=== PATIENT | female | born 1955 | race Caucasian/White ===

== ENCOUNTER 2016-09-03 17:47 | Emergency (ER) | payer SELFPAY ==
[2016-09-03] MEDS ORDERED: Sodium Chloride 0.9% 1000 ML 1,000 ML IV SCH (18:00)
[2016-09-03] MEDS ORDERED: VERSED 5 MG/5 ML ONE (18:04)
[2016-09-03] MEDS ORDERED: Sodium Chloride 0.9% 1000 ML 1,000 ML ONE (18:04)
[2016-09-03 18:05] LABS: A-aADO2 551; ARTERIAL BLD GAS O2 SATURATION 81.2 % (95-100); ARTERIAL BLD GAS TIDAL VOLUME 550 cc; ARTERIAL BLOOD GAS BASE EXCESS -11.6 (-2.0-2.0); ARTERIAL BLOOD GAS FIO2 100 %; ARTERIAL BLOOD GAS PO2 56 mmHg (75-100); ARTERIAL BLOOD GAS pH 7.01 (7.35-7.45)
[2016-09-03 18:06] LABS: ALLEN TEST OK? YES
--- NOTE | 2016-09-03 18:06 | ERPHSYRPT ---
- History of Present Illness Time Seen by Provider: 09/03/16 17:57 Source: EMS Exam Limitations: clinical condition Physician History: This is a 61-year-old white male brought by medics patient apparently suddenly had a seizure collapsed at home. Medics were summoned they found the patient to be on the floor without pulsatile he began CPR and pulse returned patient was intubated by medics he received succinyl choline prior to arrival. Patient arrives intubated obtunded he does have a pulse and blood pressure. Timing/Duration: today (just prior to arrival) Severity: severe - Review of Systems All Other Systems: Unable due to condition (unable to obtain review of systems from this patient) - Nursing Vital Signs Nursing Vital Signs: Initial Vital Signs Temperature 97.7 F Temperature Source Rectal Pulse Rate [Left Radial] 109 Pulse Rate 117 Respiratory Rate 19 Blood Pressure [Left Arm] 108/72 Pain Intensity 0 - Physical Exam General Appearance: other (well-developed white male intubated obtunded breath sounds bilaterally with bag ventilation) Eye Exam: other (eyes pupils nonreactive (patient had received succinylcholine)) Ears, Nose, Throat Exam: TMs normal, moist mucous membranes, No normal ENT inspection (patient is intubated ET tube is in place) Neck Exam: normal inspection, non-tender, supple, full range of motion Respiratory Exam: lungs clear, other (bilateral breath sounds with ventilation through ET tube), No respiratory distress Cardiovascular Exam: regular rate/rhythm, normal heart sounds, normal peripheral pulses Gastrointestinal/Abdomen Exam: soft (O guides given some Versed), normal bowel sounds, No tenderness, No mass Back Exam: normal inspection, normal range of motion, No CVA tenderness, No vertebral tenderness Extremity Exam: normal inspection, normal range of motion, pelvis stable, No penetrations Neurologic Exam: nml station & gait, No alert (patient is obtunded he does however start fighting on his endotracheal tube he has no response to pain at this time) Skin Exam: normal color, warm, dry, No rash - Course Nursing assessment & vital signs reviewed: Yes EKG Interpreted by Me: RATE (111 bpm), Other (EKG, sinus tachycardia, 111 bpm,S AXISI/QIII pattern, elevation in lead 3,) - Radiology Exams Chest X-ray Interpretation: Interpreted by me, Other (chest x-ray increased left perihilar and right lower lobe lung markings endotracheal tube in place no pneumothorax) Ordered Tests: Active Orders 24 hr Category Date Time Status EKG-ER Only STAT Care 09/03/16 17:57 Active Wong [Catheter-Franconia Wong] STAT Care 09/03/16 19:01 Active IV Insertion STAT Care 09/03/16 17:57 Active IV Insertion-2nd Peripheral STAT Care 09/03/16 18:48 Active Pulse Oximetry (ED) STAT Care 09/03/16 17:57 Active CERVICAL SPINE WO CONTRAST [CT] Stat Exams 09/03/16 17:59 Ordered CHEST 1 VIEW (PORTABLE) Stat Exams 09/03/16 17:58 Taken HEAD WITHOUT CONTRAST [CT] Stat Exams 09/03/16 17:59 Ordered ABG [ARTERIAL BLOOD GASES] Stat Lab 09/03/16 17:54 Completed ABG [ARTERIAL BLOOD GASES] Urgent Lab 09/03/16 18:07 Completed ACETAMINOPHEN Stat Lab 09/03/16 18:12 Completed AMYLASE Stat Lab 09/03/16 18:12 Completed BLOOD CULTURE Stat Lab 09/03/16 18:25 Received CBC W DIFF Stat Lab 09/03/16 18:12 Completed CMP Stat Lab 09/03/16 18:12 Completed CULTURE,URINE Stat Lab 09/03/16 18:10 Received D-DIMER QUANTITATION Stat Lab 09/03/16 18:12 Completed Ethyl Alcohol,Urine Stat Lab 09/03/16 18:10 Completed Lactic Acid Urgent Lab 09/03/16 17:57 Completed Lactic Acid Urgent Lab 09/03/16 18:10 Ordered Manual Differential NC Stat Lab 09/03/16 18:12 Completed NT PRO BNP Stat Lab 09/03/16 18:12 Completed PROTIME WITH INR Stat Lab 09/03/16 18:12 Completed PTT Stat Lab 09/03/16 18:12 Completed SALICYLATE Stat Lab 09/03/16 18:12 Completed TROPONIN Q3H Lab 09/03/16 18:12 Completed TROPONIN Q3H Lab 09/03/16 21:00 Ordered TROPONIN Q3H Lab 09/04/16 00:00 Ordered TROPONIN Q3H Lab 09/04/16 03:00 Ordered TROPONIN Q3H Lab 09/04/16 06:00 Ordered UA W/ MICROSCOPIC Stat Lab 09/03/16 18:10 Completed Urine Triage Profile Stat Lab 09/03/16 18:10 Completed Medication Summary Generic Name Dose Route Start Last Admin Trade Name Freq PRN Reason Stop Dose Admin Sodium Chloride 1,000 mls @ 100 mls/hr 09/03/16 18:00 09/03/16 18:50 Sodium Chloride 0.9% 1000 Ml IV 10/03/16 17:59 100 mls/hr .Q10H ANA MARIA Administration Discontinued Medications Generic Name Dose Route Start Last Admin Trade Name Enzo PRN Reason Stop Dose Admin Fentanyl Citrate Confirm 09/03/16 18:38 Sublimaze 100 Mcg/2 Ml Administered 09/03/16 18:39 Dose 100 mcg .ROUTE .STK-MED ONE Sodium Chloride Confirm 09/03/16 18:04 Sodium Chloride 0.9% 1000 Ml Administered 09/03/16 18:05 Dose 1,000 mls @ ud .ROUTE .STK-MED ONE Sodium Chloride Confirm 09/03/16 18:12 Sodium Chloride 0.9% 250 Ml Administered 09/03/16 18:13 Dose 250 mls @ ud IV .STK-MED ONE Sodium Chloride Confirm 09/03/16 18:30 Sodium Chloride 0.9% 1000 Ml Administered 09/03/16 18:31 Dose 2,000 mls @ ud .ROUTE .STK-MED ONE Midazolam HCl Confirm 09/03/16 18:04 Versed 5 Mg/5 Ml Administered 09/03/16 18:05 Dose 5 mg .ROUTE .STK-MED ONE Midazolam HCl Confirm 09/03/16 18:12 Versed 50 Mg/ 10 Ml Mdv Administered 09/03/16 18:13 Dose 50 mg .ROUTE .STK-MED ONE Lab/Rad Data: Laboratory Result Diagrams 09/03/16 18:12 09/03/16 18:12 Laboratory Results 09/03/16 09/03/16 09/03/16 Range/Units 18:12 18:12 18:12 WBC (4.0-10.5) K/mm3 RBC (4.1-5.4) M/mm3 Hgb (12.0-16.0) gm/dl Hct (35-47) % MCV (78-100) fl MCH (26-32) pg MCHC (32-36) g/dl RDW (11.5-14.0) % Plt Count (150-450) K/mm3 MPV (6-9.5) fl INR 1.07 (0.8-3.0) PTT 28.7 (25.3-37.0) SECONDS D-Dimer 5.279 H* (0.00-0.49) mg/L Puncture Site pCO2 (35-45) mmHg pO2 (75-100) mmHg Base Excess (-2.0-2.0) O2 Saturation (94-100) g/dF ABG pH (7.35-7.45) ABG HCO3 (22-28) ABG O2 Sat (Measured) (95-100) % David Test A-a Gradient a/A Ratio Hemoglobin Carboxyhemoglobin (0.0-6.9) % THgb Methemoglobin (1.4-1.5) % Potassium 4.1 (3.5-5.1) Temperature C POC O2 Flow Rate % Vent Mode Vent Rate /MIN Tidal Volume cc PEEP cmH2O Sodium 144 (136-145) mEq/L Chloride 105 (98-107) mEq/L Carbon Dioxide 22.6 (21-32) mEq/L Anion Gap 20.8 H (5-15) MEQ/L BUN 11 (9-20) mg/dL Creatinine 1.51 H (0.55-1.30) mg/dl Estimated GFR 37 ML/MIN Glucose 300 H (70-110) MG/DL Lactic Acid (0.4-2.0) Calcium 8.4 L (8.5-10.1) mg/dL Total Bilirubin 0.3 (0.2-1.0) mg/dL AST 26 (15-37) U/L ALT 29 (12-78) U/L Alkaline Phosphatase 101 (46-116) U/L Troponin I < 0.017 (0.000-0.056) ng/ml NT-Pro-B Natriuret Pep < 5.0 (0-125) pg/ml Serum Total Protein 7.0 (6.4-8.2) gm/dL Albumin 3.3 L (3.4-5.0) g/dL Amylase 44 (25-115) U/L Ur Collection Type Urine Color (YELLOW) Urine Appearance (CLEAR) Urine pH (5-6) Ur Specific Spring (1.005-1.025) Urine Protein (Negative) Urine Glucose (UA) (NEGATIVE) mg/dL Urine Ketones (NEGATIVE) Urine Nitrite (NEGATIVE) Urine Bilirubin (NEGATIVE) Urine Urobilinogen (0-1) mg/dL Urine WBC (Auto) (NEGATIVE) Urine RBC (Auto) (0-5) Carlos/ul Urine Microscopic RBC (0-2) /HPF Urine Bacteria (NEGATIVE) /HPF Urine Mucus (NEGATIVE) /HPF Salicylates < 2.8 L (2.8-20.0) mg/dl Urine Opiates Level (NEGATIVE) Ur Methadone (NEGATIVE) Acetaminophen < 2.0 L (10-30) ug/ml Urine Barbiturates (NEGATIVE) Ur Phencyclidine (PCP) (NEGATIVE) Urine Amphetamine (NEGATIVE) U Benzodiazepine Level (NEGATIVE) Urine Cocaine (NEGATIVE) Urine Marijuana (THC) (NEGATIVE) Urine Ethyl Alcohol (0.00-20) mg/dl Specimen Received 09/03/16 09/03/16 09/03/16 Range/Units 18:12 18:10 18:10 WBC 15.8 H (4.0-10.5) K/mm3 RBC 4.91 (4.1-5.4) M/mm3 Hgb 14.8 (12.0-16.0) gm/dl Hct 46.4 (35-47) % MCV 94.5 (78-100) fl MCH 30.1 (26-32) pg MCHC 31.9 L (32-36) g/dl RDW 13.0 (11.5-14.0) % Plt Count 383 (150-450) K/mm3 MPV 11.0 H (6-9.5) fl INR (0.8-3.0) PTT (25.3-37.0) SECONDS D-Dimer (0.00-0.49) mg/L Puncture Site pCO2 (35-45) mmHg pO2 (75-100) mmHg Base Excess (-2.0-2.0) O2 Saturation (94-100) g/dF ABG pH (7.35-7.45) ABG HCO3 (22-28) ABG O2 Sat (Measured) (95-100) % David Test A-a Gradient a/A Ratio Hemoglobin Carboxyhemoglobin (0.0-6.9) % THgb Methemoglobin (1.4-1.5) % Potassium (3.5-5.1) Temperature C POC O2 Flow Rate % Vent Mode Vent Rate /MIN Tidal Volume cc PEEP cmH2O Sodium (136-145) mEq/L Chloride (98-107) mEq/L Carbon Dioxide (21-32) mEq/L Anion Gap (5-15) MEQ/L BUN (9-20) mg/dL Creatinine (0.55-1.30) mg/dl Estimated GFR ML/MIN Glucose (70-110) MG/DL Lactic Acid (0.4-2.0) Calcium (8.5-10.1) mg/dL Total Bilirubin (0.2-1.0) mg/dL AST (15-37) U/L ALT (12-78) U/L Alkaline Phosphatase (46-116) U/L Troponin I (0.000-0.056) ng/ml NT-Pro-B Natriuret Pep (0-125) pg/ml Serum Total Protein (6.4-8.2) gm/dL Albumin (3.4-5.0) g/dL Amylase (25-115) U/L Ur Collection Type CATH Urine Color YELLOW (YELLOW) Urine Appearance SLIGHTLY CLOUDY (CLEAR) Urine pH 6.0 (5-6) Ur Specific Spring 1.025 (1.005-1.025) Urine Protein 100 (Negative) Urine Glucose (UA) 250 (NEGATIVE) mg/dL Urine Ketones NEGATIVE (NEGATIVE) Urine Nitrite NEGATIVE (NEGATIVE) Urine Bilirubin NEGATIVE (NEGATIVE) Urine Urobilinogen 1 (0-1) mg/dL Urine WBC (Auto) NEGATIVE (NEGATIVE) Urine RBC (Auto) MODERATE (0-5) Carlos/ul Urine Microscopic RBC 15-25 (0-2) /HPF Urine Bacteria FEW (NEGATIVE) /HPF Urine Mucus SLIGHT (NEGATIVE) /HPF Salicylates (2.8-20.0) mg/dl Urine Opiates Level NEG. (NEGATIVE) Ur Methadone NEG. (NEGATIVE) Acetaminophen (10-30) ug/ml Urine Barbiturates NEG. (NEGATIVE) Ur Phencyclidine (PCP) NEG. (NEGATIVE) Urine Amphetamine POS. (NEGATIVE) U Benzodiazepine Level NEG. (NEGATIVE) Urine Cocaine NEG. (NEGATIVE) Urine Marijuana (THC) POS. (NEGATIVE) Urine Ethyl Alcohol (0.00-20) mg/dl Specimen Received [id number] 09/03/16 09/03/16 09/03/16 Range/Units 18:10 18:07 17:57 WBC (4.0-10.5) K/mm3 RBC (4.1-5.4) M/mm3 Hgb (12.0-16.0) gm/dl Hct (35-47) % MCV (78-100) fl MCH (26-32) pg MCHC (32-36) g/dl RDW (11.5-14.0) % Plt Count (150-450) K/mm3 MPV (6-9.5) fl INR (0.8-3.0) PTT (25.3-37.0) SECONDS D-Dimer (0.00-0.49) mg/L Puncture Site RIGHT RADIAL pCO2 53 H (35-45) mmHg pO2 160 H* (75-100) mmHg Base Excess -9.6 L (-2.0-2.0) O2 Saturation 97.3 (94-100) g/dF ABG pH 7.17 L* (7.35-7.45) ABG HCO3 19.3 L (22-28) ABG O2 Sat (Measured) 100.1 H (95-100) % David Test YES A-a Gradient 487 a/A Ratio 0.25 Hemoglobin 14.7 Carboxyhemoglobin 1.7 (0.0-6.9) % THgb Methemoglobin 1.1 L (1.4-1.5) % Potassium 4.2 (3.5-5.1) Temperature 37.0 C POC O2 Flow Rate 100 % Vent Mode A/C Vent Rate 18 /MIN Tidal Volume 550 cc PEEP 3 cmH2O Sodium (136-145) mEq/L Chloride (98-107) mEq/L Carbon Dioxide (21-32) mEq/L Anion Gap (5-15) MEQ/L BUN (9-20) mg/dL Creatinine (0.55-1.30) mg/dl Estimated GFR ML/MIN Glucose (70-110) MG/DL Lactic Acid 5.0 H (0.4-2.0) Calcium (8.5-10.1) mg/dL Total Bilirubin (0.2-1.0) mg/dL AST (15-37) U/L ALT (12-78) U/L Alkaline Phosphatase (46-116) U/L Troponin I (0.000-0.056) ng/ml NT-Pro-B Natriuret Pep (0-125) pg/ml Serum Total Protein (6.4-8.2) gm/dL Albumin (3.4-5.0) g/dL Amylase (25-115) U/L Ur Collection Type Urine Color (YELLOW) Urine Appearance (CLEAR) Urine pH 6.0 (5-6) Ur Specific Spring (1.005-1.025) Urine Protein (Negative) Urine Glucose (UA) (NEGATIVE) mg/dL Urine Ketones (NEGATIVE) Urine Nitrite (NEGATIVE) Urine Bilirubin (NEGATIVE) Urine Urobilinogen (0-1) mg/dL Urine WBC (Auto) (NEGATIVE) Urine RBC (Auto) (0-5) Carlos/ul Urine Microscopic RBC (0-2) /HPF Urine Bacteria (NEGATIVE) /HPF Urine Mucus (NEGATIVE) /HPF Salicylates (2.8-20.0) mg/dl Urine Opiates Level (NEGATIVE) Ur Methadone (NEGATIVE) Acetaminophen (10-30) ug/ml Urine Barbiturates (NEGATIVE) Ur Phencyclidine (PCP) (NEGATIVE) Urine Amphetamine (NEGATIVE) U Benzodiazepine Level (NEGATIVE) Urine Cocaine (NEGATIVE) Urine Marijuana (THC) (NEGATIVE) Urine Ethyl Alcohol 2 (0.00-20) mg/dl Specimen Received 09/03/16 Range/Units 17:54 WBC (4.0-10.5) K/mm3 RBC (4.1-5.4) M/mm3 Hgb (12.0-16.0) gm/dl Hct (35-47) % MCV (78-100) fl MCH (26-32) pg MCHC (32-36) g/dl RDW (11.5-14.0) % Plt Count (150-450) K/mm3 MPV (6-9.5) fl INR (0.8-3.0) PTT (25.3-37.0) SECONDS D-Dimer (0.00-0.49) mg/L Puncture Site RIGHT RADIAL pCO2 85 H* (35-45) mmHg pO2 56 L (75-100) mmHg Base Excess -11.6 L (-2.0-2.0) O2 Saturation 78.9 L (94-100) g/dF ABG pH 7.01 L* (7.35-7.45) ABG HCO3 21.4 L (22-28) ABG O2 Sat (Measured) 81.2 L (95-100) % David Test YES A-a Gradient 551 a/A Ratio 0.09 Hemoglobin 14.8 Carboxyhemoglobin 1.8 (0.0-6.9) % THgb Methemoglobin 1.0 L (1.4-1.5) % Potassium 3.9 (3.5-5.1) Temperature 37.0 C POC O2 Flow Rate 100 % Vent Mode A/C Vent Rate 14 /MIN Tidal Volume 550 cc PEEP 3 cmH2O Sodium (136-145) mEq/L Chloride (98-107) mEq/L Carbon Dioxide (21-32) mEq/L Anion Gap (5-15) MEQ/L BUN (9-20) mg/dL Creatinine (0.55-1.30) mg/dl Estimated GFR ML/MIN Glucose (70-110) MG/DL Lactic Acid (0.4-2.0) Calcium (8.5-10.1) mg/dL Total Bilirubin (0.2-1.0) mg/dL AST (15-37) U/L ALT (12-78) U/L Alkaline Phosphatase (46-116) U/L Troponin I (0.000-0.056) ng/ml NT-Pro-B Natriuret Pep (0-125) pg/ml Serum Total Protein (6.4-8.2) gm/dL Albumin (3.4-5.0) g/dL Amylase (25-115) U/L Ur Collection Type Urine Color (YELLOW) Urine Appearance (CLEAR) Urine pH (5-6) Ur Specific Spring (1.005-1.025) Urine Protein (Negative) Urine Glucose (UA) (NEGATIVE) mg/dL Urine Ketones (NEGATIVE) Urine Nitrite (NEGATIVE) Urine Bilirubin (NEGATIVE) Urine Urobilinogen (0-1) mg/dL Urine WBC (Auto) (NEGATIVE) Urine RBC (Auto) (0-5) Carlos/ul Urine Microscopic RBC (0-2) /HPF Urine Bacteria (NEGATIVE) /HPF Urine Mucus (NEGATIVE) /HPF Salicylates (2.8-20.0) mg/dl Urine Opiates Level (NEGATIVE) Ur Methadone (NEGATIVE) Acetaminophen (10-30) ug/ml Urine Barbiturates (NEGATIVE) Ur Phencyclidine (PCP) (NEGATIVE) Urine Amphetamine (NEGATIVE) U Benzodiazepine Level (NEGATIVE) Urine Cocaine (NEGATIVE) Urine Marijuana (THC) (NEGATIVE) Urine Ethyl Alcohol (0.00-20) mg/dl Specimen Received - Progress Progress: improved Progress Note: 09/03/16 18:30 61-year-old white male who was noted to fall to the floor striking his head having a seizures and go into cardiac arrest. Patient was given CPR by medics. , Patient was return of spontaneous pulse he was given Versed and succinylcholine and intubated by the medics he arrives with a pulse with a blood pressure he has bilateral breath sounds with bag ventilation EKG sinus tachycardia 111 bpm axis SI /QIII pattern, there is elevation in lead 3 but it appears to be isolated patient's initial ABGs show pH of 7.01 PCO2 85 PO2 56 bicarbonate 21 glucose was 286 lactate 6.2 potassium 3. 9 repeat ABGs pH 7.17 PCO2 53 PO2 160 sats 100% I've talked with the Dr. Hester an Dr. Lehman at [facility] through the one call system I have discussed with him the patient's clinical condition and I discussed with them sending him to [facility] with a diagnosis of cardiac arrest and decreased level of consciousness with seizure. CT of the head and neck are pending on this patient as are CBC CMP troponin chest x-ray. Dr. Ruggiero and states that he would like to be sure that patient does not have an intercranial bleed and if his if not we will plan to send the patient to [facility] he will go through the emergency room and to the ICU. Patient has been being given Versed secondary to he is biting on the tube and reaching up towards his face he still does not appear to be alert at this time. We will go ahead and give the patient IV fluids as well Dr. Lehman recommended against giving the patient ketamine if the patient possibly could have a head bleed. 09/03/16 18:46 Patient's brother is here he states he thinks the patient has COPD he is not aware of any other illnesses 09/03/16 19:[address] no obvious bleeds this is my initial reading. CT C-spine, no acute fractures or subluxation are noted. EKG sinus tachycardia 100 bpm axisSi/QIII pattern patient does have an elevated d-dimer of 5.279 INR 1.07 lactate 5.0 chemistry sodium 144 potassium 4.1 chloride 105 bicarbonate 22.6 BUN 11 creatinine 1.51 glucose is 300 troponin within normal limits urine drug screen positive for amphetamines, THC blood alcohol level is 2 urinalysis 15-25 white cells per high-power field chest x-ray is pending we'll plan to transfer patient to CCU Dr. Hester as attending. Diagnosis cardiac arrest. Decreased level of consciousness. Head contusion. Seizure - Departure Time of Disposition: 19:09 Departure Disposition: Transfer (transfer to [facility] Dr. Lehman, Dr Hester) Clinical Impression: Cardiac arrest, Seizure Head contusion Qualifiers: Encounter type: initial encounter Contusion of head detail: unspecified part of head Qualified Code(s): S00.93XA - Contusion of unspecified part of head, initial encounter Condition: Fair Critical Care Time: Yes Critical Care Time(excluding separately billable procedures): 75-104 minutes Referrals: Provider,Unknown [Primary Care Provider] -
[2016-09-03 18:08] LABS: A-aADO2 487; ARTERIAL BLD GAS O2 SATURATION 100.1 % (95-100); ARTERIAL BLD GAS TIDAL VOLUME 550 cc; ARTERIAL BLOOD GAS BASE EXCESS -9.6 (-2.0-2.0); ARTERIAL BLOOD GAS FIO2 100 %; ARTERIAL BLOOD GAS PO2 160 mmHg (75-100)
[2016-09-03 18:09] LABS: ARTERIAL BLOOD GAS pH 7.17 (7.35-7.45)
[2016-09-03 18:10] LABS: ALLEN TEST OK? YES
[2016-09-03] MEDS ORDERED: Sodium Chloride 0.9% 250 ML 250 ML IV ONE (18:12)
[2016-09-03] MEDS ORDERED: Versed 50 MG/ 10 Ml MDV ONE (18:12)
[2016-09-03 18:29] LABS: Mean Cell Volume 94.5 fl (78-100); Mean Corpuscular Hemoglobin 30.1 pg (26-32); Platelet Count 383 K/mm3 (150-450); Red Blood Count 4.91 M/mm3 (4.1-5.4); White Blood Count 15.8 K/mm3 (4.0-10.5)
[2016-09-03] MEDS ORDERED: Sodium Chloride 0.9% 1000 ML 2,000 ML ONE (18:30)
[2016-09-03] MEDS ORDERED: SUBLIMAZE 100 MCG/2 ML ONE (18:38)
[2016-09-03] MEDS ORDERED: Zemuron 100 MG/10 ML IV ONE (18:38)
[2016-09-03 18:42] LABS: Collection Type CATH
[2016-09-03 18:43] LABS: COMPLETE URINE MICROSCOPIC? YES
[2016-09-03 18:44] LABS: Bacteria FEW /HPF (NEGATIVE); Mucus SLIGHT /HPF (NEGATIVE)
[2016-09-03 18:46] LABS: INR 1.07 (0.8-3.0)
[2016-09-03 18:48] VITALS: BP 108/72; PULSE 117; O2SAT 93
[2016-09-03 18:49] LABS: PTT 28.7 SECONDS (25.3-37.0)
[2016-09-03 19:04] LABS: ACETAMINOPHEN < 2.0 ug/ml (10-30); ALBUMIN 3.3 g/dL (3.4-5.0); ALKALINE PHOSPHATASE 101 U/L (46-116); ANION GAP 20.8 MEQ/L (5-15); BILIRUBIN,TOTAL 0.3 mg/dL (0.2-1.0); BLOOD UREA NITROGEN 11 mg/dL (9-20); CHLORIDE 105 mEq/L (98-107); Carbon Dioxide 22.6 mEq/L (21-32); Glucose 300 MG/DL (70-110); Potassium 4.1 mEq/L (3.5-5.1); SGOT/AST 26 U/L (15-37); SGPT/ALT 29 U/L (12-78); SODIUM 144 mEq/L (136-145)
[2016-09-03 20:24] LABS: Eosinophil 2 % (0.00-3.0); Platelet Estimate NORMAL (NORMAL); Total Cells Counted 100
--- NOTE | 2016-09-03 22:34 | XRAY ---
Indication: Cardiac arrest. Unresponsive. Comparison: None Portable chest underinflated accentuating the cardiopulmonary structures. There are numerous overlying monitoring leads/pads. Endotracheal tube tip 6 cm above the haroldo. Left perihilar and right infrahilar infiltrate versus atelectasis. No consolidation, large effusion, or pneumothorax. Heart is still within normal limits for AP portable technique. Bony thorax intact. Impression: 1. Limited underinflated chest with left perihilar and right infrahilar infiltrates/atelectasis. Correlate clinically. 2. Endotracheal tube tip 6 mm above the haroldo.
--- NOTE | 2016-09-03 22:36 | XRAY ---
Indication: Cardiac arrest. Unconscious. Possible seizures. Multiple contiguous axial images obtained through the head without contrast. Comparison: None Age-appropriate global atrophy and very minimal periventricular degenerative micro-ischemia bilaterally. No acute intracranial hemorrhage, abnormal extra-axial fluid collection, or mass effect. Fourth ventricle is midline without hydrocephalus. Dooley-white matter differentiation maintained. Visualized bony calvarium intact. Near-complete opacification of the visualized right maxillary sinus with lesser moderate opacification of the left maxillary, both ethmoid, and both sphenoid sinuses. Previous left mastoidectomy. Right mastoid air cells are clear. Impression: Atrophy and degenerative micro-ischemia within normal limits for patient's age. No acute intracranial abnormalities. Incidental pansinusitis and left mastoidectomy. Comment: Preliminary interpretation was made by [facility]. No critical discrepancy. CTDI 60.68
--- NOTE | 2016-09-03 22:42 | XRAY ---
Indication: Cardiac arrest. Possible seizures. No known medical history. Multiple contiguous axial images obtained through the cervical spine. Sagittal and coronal reformatted images obtained. Comparison: None Axial images negative for acute fracture, suspicious bony lesions, or spinal canal stenosis. Mild/moderate C4-C6 degenerative endplate spurring with minimal degenerative vacuum disc phenomena. Mild right C4-C5 degenerative facet hypertrophy. Sagittal and coronal reformatted images demonstrate lordotic straightening, positional versus paraspinal spasm. C4-C6 degenerative disc space narrowing. No acute compression fracture, subluxation, or jump facet. Normal-appearing craniocervical junction. Partially visualized endotracheal tube. Near complete opacification of the visualized right maxillary sinus with lesser moderate opacification of the left maxillary, both ethmoid, and both sphenoid sinuses. Previous left mastoidectomy. Lung apices demonstrates extensive emphysema with fibrosis/scarring. There are a few air bubbles deep to both clavicles. CT head reported separately. Impression: 1. Negative for acute fracture/subluxation. Lordotic straightening. 2. C4-C6 degenerative disc disease. 3. Biapical pulmonary emphysema with fibrosis/scarring. 4. Tiny air bubbles deep to the clavicles of uncertain etiology. Comment: Preliminary interpretation was made by [facility]. No discrepancy. CTDI 126.62
== END 2016-09-03 19:25 | disposition short-term general hospital (02) ==
LOC: ED 17:47
DX: I46.9 Cardiac arrest, cause unspecified (principal); R56.9 Unspecified convulsions; S00.93XA Contusion of unspecified part of head, initial encounter
CPT/HCPCS: 36000; 36415; 36600; 51702; 70450; 71010; 72125; 80053; 80307; 80320; 81000; 82150; 82375; 82803; 83605; 83880; 83986; 84484; 85025; 85379; 85610; 85730; 87040; 87086; 93005; 94002; 94799; 96360; 96361; 96365; 99285; 99291; 99292; G0481; J2250; J3010; L0120